=== PATIENT | female | born 1990 | race Caucasian/White ===

== ENCOUNTER 2017-02-18 08:57 | Emergency (ER) | payer BC ==
[2017-02-18 09:11] VITALS: BMI 27.4
[2017-02-18 09:20] VITALS: O2SAT 99
--- NOTE | 2017-02-18 10:29 | C.PDOC ---
History Of Present Illness <Annita Lopez - Last Filed: 02/18/17 11:06> <Kumar Tapia - Last Filed: 02/18/17 13:05> 26 year old female with no significant past medical history presents with complaints of productive cough and congestion which began a week ago. Patient states that she took Sudafed, Delsym and Claritin without relief. She admits to congestion, initial subjective fevers and generalized aches. She denies sore throat, dyspnea, rhinorrhea, recent sick contacts or headaches at this time ( Kumar Tapia) <Annita Lopez - Last Filed: 02/18/17 11:06> History Per: Patient Onset/Duration Of Symptoms: Days Location Of Pain: Headache Associated Symptoms: Fever, Cough, Sputum, Nasal Congestion. denies: Neck Pain Ear Symptoms: Left: None, Right: None Severity: Mild <Kumar Tapia - Last Filed: 02/18/17 13:05> Time Seen by Provider: 02/18/17 10:18 Chief Complaint (Nursing): Cough, Cold, Congestion Past Medical History Family History: States: Unknown Family Hx - Social History Hx Tobacco Use: No Hx Alcohol Use: No Hx Substance Use: No - Immunization History Hx Tetanus Toxoid Vaccination: Yes Hx Influenza Vaccination: No Hx Pneumococcal Vaccination: No <LillygaelKumar - Last Filed: 02/18/17 13:05> Vital Signs: Last Vital Signs Temp 97.8 F 02/18/17 11:14 Pulse 78 02/18/17 11:14 Resp 18 02/18/17 11:14 BP 115/79 02/18/17 11:14 Pulse Ox 99 02/18/17 11:14 Review Of Systems ENT: Positive for: Nose Congestion Respiratory: Positive for: Cough. Negative for: Shortness of Breath, SOB with Excertion, Wheezing Gastrointestinal: Negative for: Nausea, Vomiting, Abdominal Pain <Kumar Tapia - Last Filed: 02/18/17 13:05> Physical Exam - Physical Exam Appears: No Acute Distress Skin: Warm, Dry, No Diaphoretic Head: Atraumatic, Normacephalic Eye(s): bilateral: Normal Inspection Ear(s): Left: Normal, Right: Normal Nose: No Discharge, No Tenderness, Other (mild swelling of nasal turbinates) Oral Mucosa: Moist, No Dry Tongue: Normal Appearing Lips: Normal Appearing Teeth: Normal Dentition Throat: Normal (tonsillar crypts), No Erythema, No Exudate Neck: Normal ROM Lymphatic: Adenopathy Chest: Symmetrical Cardiovascular: Rhythm Regular, No Murmur Respiratory: Normal Breath Sounds Extremity: Normal ROM Neurological/Psych: Oriented x3, Normal Speech, Normal Cognition, Normal Motor, Normal Sensation <Kumar Tapia - Last Filed: 02/18/17 13:05> ED Course And Treatment O2 Sat by Pulse Oximetry: 99 Progress Note: Patient re-evaluated. Given tessalon perles and motrin. Reevaluation Time: 11:10 Reassessment Condition: Improved <Kumar Tapia - Last Filed: 02/18/17 13:05> Supervising Attending Note - Attestation: I have personally seen and examined this patient.: Yes I have fully participated in the care of the patient.: Yes I have reviewed all pertinent clinical information, including history, physical exam and plan: Yes <Annita Lopez - Last Filed: 02/18/17 11:06> <Kumar Tapia - Last Filed: 02/18/17 13:05> - Notes: Notes:: COUGH X 1 WEEK. SUBJ FEVER. NEW ONSET LARYNGITIS X 5 DAYS. NO ASTHMA. NO RELIEF W OTC COUGH RX. EXAM ABOVE (Annita Lopez) Medical Decision Making <Annita Lopez - Last Filed: 02/18/17 11:06> <Kumar Tapia - Last Filed: 02/18/17 13:05> Medical Decision Making: Patient instructed to take supportive measures at this time . No antibiotics to be described as patient has a viral-related presentation. If symptoms return or exacerbate, patient is to go to the Emergency room. Patient expressed understanding. (Kumar Tapia) Disposition Counseled Patient/Family Regarding: Diagnosis, Need For Followup, Rx Given - Disposition Disposition Time: 11:11 <Annita Lopez - Last Filed: 02/18/17 11:06> <Kumar Tapia - Last Filed: 02/18/17 13:05> - Disposition Referrals: [facility] [Outside] [facility] [Outside] Disposition: HOME/ ROUTINE Condition: IMPROVED Prescriptions: Benzonatate [Tessalon Perles] 200 mg PO TID PRN #15 sgl PRN Reason: Cough Ibuprofen [Motrin] 600 mg PO Q6 #30 tab Instructions: Laryngitis (ED), Upper Respiratory Infection (ED) Forms: [employer] (Armenian) - Clinical Impression Clinical Impression: Upper respiratory infection, Laryngitis
[2017-02-18 11:15] VITALS: BP 115/79; PULSE 78; RESP 18; TEMP 97.8
== END 2017-02-18 11:21 | disposition home or self-care (01) ==
LOC: C.ER 08:57
DX: J04.0 Acute laryngitis (principal); J06.9 Acute upper respiratory infection, unspecified

== ENCOUNTER 2017-03-11 16:37 | Emergency (ER) | payer SELFPAY ==
[2017-03-11 16:38] VITALS: BMI 27.4
--- NOTE | 2017-03-11 17:39 | C.PDOC ---
History Of Present Illness 26 y/o female presents to the ER complaining of coughing, congestion, and sore throat. Patient reports that she recently visited [facility] for coughing and congestion and she was given Benzonatate. Patient reports that she took Benzonatate three days ago and she had an allergic reaction to Benzonatate. Patient also reports she has a headache. She denies having any other medical problems. Time Seen by Provider: 03/11/17 17:21 Chief Complaint (Nursing): Cough, Cold, Congestion History Per: Patient History/Exam Limitations: no limitations Onset/Duration Of Symptoms: Days Current Symptoms Are (Timing): Still Present Associated Symptoms: Sore Throat, Cough, Nasal Congestion Severity: Moderate Past Medical History Reviewed: Historical Data, Nursing Documentation, Vital Signs Vital Signs: Last Vital Signs Temp 95.5 F L 03/11/17 16:44 Pulse 86 03/11/17 16:44 Resp 16 03/11/17 16:44 BP 112/74 03/11/17 16:44 Pulse Ox 100 03/11/17 17:49 - Medical History PMH: No Chronic Diseases Surgical History: No Surg Hx Family History: States: No Known Family Hx - Social History Hx Tobacco Use: No Hx Alcohol Use: No Hx Substance Use: No - Immunization History Hx Tetanus Toxoid Vaccination: Yes Hx Influenza Vaccination: No Hx Pneumococcal Vaccination: No Review Of Systems Except As Marked, All Systems Reviewed And Found Negative. Constitutional: Negative for: Fever, Chills ENT: Positive for: Nose Congestion Respiratory: Positive for: Cough Gastrointestinal: Negative for: Nausea, Vomiting, Diarrhea Neurological: Positive for: Headache Physical Exam - Physical Exam Appears: Non-toxic, No Acute Distress Skin: Normal Color, Warm Head: Atraumatic, Normacephalic Eye(s): bilateral: Normal Inspection, PERRL Nose: Normal Oral Mucosa: Moist Throat: Normal, No Erythema, No Exudate Neck: Supple Chest: Symmetrical Extremity: Normal ROM Neurological/Psych: Oriented x3, Normal Speech, Normal Cognition, Normal Motor, Normal Sensation ED Course And Treatment O2 Sat by Pulse Oximetry: 100 (RA) Pulse Ox Interpretation: Normal Medical Decision Making Medical Decision Making: Impression: Cough and Congestion Plan: --Albuterol --Nebulizer Treatment Disposition Counseled Patient/Family Regarding: Diagnosis, Need For Followup, Rx Given - Disposition Referrals: [facility] [Outside] Disposition: HOME/ ROUTINE Disposition Time: 18:48 Condition: STABLE Prescriptions: Albuterol HFA [Ventolin HFA 90 mcg/actuation (8 g)] 1 puff IH QID PRN #1 puff PRN Reason: Cough Prednisone [Deltasone] 60 mg PO DAILY #15 tablet Instructions: Acute Bronchitis (ED) Forms: [employer] (Serbian), Work Excuse - POA Present On Arrival: None - Clinical Impression Clinical Impression: Bronchitis - Scribe Statement The provider has reviewed the documentation as recorded by the Paulo Ang Provider Attestation: All medical record entries made by the Paulo were at my direction and personally dictated by me. I have reviewed the chart and agree that the record accurately reflects my personal performance of the history, physical exam, medical decision making, and the department course for this patient. I have also personally directed, reviewed, and agree with the discharge instructions and disposition.
[2017-03-11] MEDS: Albuterol 0.083% Inhal Sol (2.5 mg/3 mL) UD INH SCH (17:51)
[2017-03-11] MEDS ORDERED: Albuterol 0.083% Inhal Sol (2.5 mg/3 mL) UD ONE (18:11)
[2017-03-11 18:57] VITALS: BP 121/79; PULSE 85; RESP 20; TEMP 98.7; O2SAT 95
== END 2017-03-11 18:57 | disposition home or self-care (01) ==
LOC: C.ER 16:37
DX: J40 Bronchitis, not specified as acute or chronic (principal)

== ENCOUNTER 2017-03-19 19:38 | Emergency (ER) | payer SELFPAY ==
[2017-03-19 19:38] VITALS: BMI 27.4
[2017-03-19 20:12] VITALS: BP 129/86; PULSE 99; RESP 18; TEMP 98.9; O2SAT 96
--- NOTE | 2017-03-19 20:24 | C.PDOC ---
History Of Present Illness 26 year old female with no significant past medical history presents with complaints of productive cough, congestion which began 2 weeks ago. Patient states developed sore throat, pos-nasal drip, productive cough with greenish sputum that would not improved after was seen here in Ed twice and completed Rx : Tessalon, Prednisone. Pt denies previous hx of allergic reaction, denies exposure to new substance. Pt denies high fever, chills, headache, dizziness, drooling, dysphagia, dyspnea, SOB, wheezing, abd. pain, N/V, back pain, UTI sx. Ambulate to ED for evaluation, not in any apparent distress. Time Seen by Provider: 03/19/17 20:12 Chief Complaint (Nursing): Cough, Cold, Congestion History Per: Patient Past Medical History Reviewed: Historical Data, Nursing Documentation, Vital Signs Vital Signs: Last Vital Signs Temp 98.9 F 03/19/17 20:11 Pulse 99 H 03/19/17 20:11 Resp 18 03/19/17 20:11 BP 129/86 03/19/17 20:11 Pulse Ox 96 03/19/17 21:01 - Medical History PMH: No Chronic Diseases Family History: States: No Known Family Hx - Social History Hx Tobacco Use: No Hx Alcohol Use: Yes Hx Substance Use: No - Immunization History Hx Tetanus Toxoid Vaccination: Yes Hx Influenza Vaccination: No Hx Pneumococcal Vaccination: No Review Of Systems Except As Marked, All Systems Reviewed And Found Negative. Constitutional: Negative for: Fever, Chills ENT: Positive for: Nose Discharge, Nose Congestion, Throat Pain, Throat Swelling. Negative for: Ear Discharge Cardiovascular: Negative for: Chest Pain, Palpitations, Light Headedness Respiratory: Positive for: Cough, Sputum. Negative for: Shortness of Breath, Wheezing Gastrointestinal: Negative for: Nausea, Vomiting, Abdominal Pain Genitourinary: Negative for: Dysuria Skin: Negative for: Rash Neurological: Negative for: Altered Mental Status, Headache, Dizziness Physical Exam - Physical Exam Appears: Well, Non-toxic, No Acute Distress Skin: Normal Color, Warm, Dry, No Rash Eye(s): bilateral: PERRL Ear(s): Bilateral: Normal Nose: No Flaring, Discharge (B/L nasal congestion with scant clear rhinorrhea), No Deformity, No Tenderness Oral Mucosa: Moist, No Drooling Lips: Normal Appearing Gingiva: Normal Appearing Throat: Erythema (mild B/L), No Exudate, No Drooling Neck: Trachea Midline, Supple, Other ((-) meningeal sign) Cardiovascular: Rhythm Regular, No Murmur, No JVD Respiratory: No Decreased Breath Sounds, No Accessory Muscle Use, No Stridor, No Wheezing Gastrointestinal/Abdominal: Soft, No Tenderness Back: No CVA Tenderness Extremity: Normal ROM, No Deformity, No Swelling Neurological/Psych: Oriented x3, Normal Speech ED Course And Treatment O2 Sat by Pulse Oximetry: 96 Pulse Ox Interpretation: Normal Progress Note: On re-evaluation, pt is afebrile, hemodynamicaly stable. Non- toxic. Tolerate PO well in ED. Pulseox 96% RA. ENT: mild pharyngitis, (+) post -nasal drip noted. Neck: SUpple, (-) meningeal sign. Lungs: CTA B/L, BS equal B/L. ABd: benign. Neuorlogicaly intact. Influenza (-). RST (-). CXR review and appears noraml. Pt has clinical findings c/w bronchitis, advised. ref. to F/u with PMD in 2-3 days for re-eavl. return to ED if any worsening or new changes. Disposition Counseled Patient/Family Regarding: Studies Performed, Diagnosis, Need For Followup, Rx Given - Disposition Referrals: Dionisio LEYVA,Trev Dotson MD [Medical Doctor] - Disposition: HOME/ ROUTINE Disposition Time: 20:23 Condition: STABLE Additional Instructions: ENCOURAGE FLUIDS TAKE MEDICATION PRESCRIBED FOLLOW UP WITH PMD IN 2-3 DAYS FOR RE-EVALUATION. RETURN TO ED IF ANY WORSENING OR NEW CHANGES. Prescriptions: Cefdinir [Omnicef] 300 mg PO BID #14 cap Loratadine/Pseudoephedrine [Claritin-D 24 Hour Tablet] 1 each PO DAILY #20 tab.er.24h Promethazine HCl/Codeine [Prometh-Codein 6.25-10 mg/5 ml] 10 ml PO Q8 #80 ml Instructions: Acute Bronchitis (ED) Forms: [employer] (Turkmen) - Clinical Impression Clinical Impression: Bronchitis
[2017-03-19] MEDS ORDERED: Promethazine/Cod 6.25mg-10mg/5ml Syr UD PO STA (20:32)
[2017-03-19] MEDS ORDERED: Albuterol 0.083% Inhal Sol (2.5 mg/3 mL) UD IH STA (20:32)
[2017-03-19] MEDS ORDERED: Albuterol 0.083% Inhal Sol (2.5 mg/3 mL) UD ONE (20:49)
[2017-03-19 21:00] LABS: INFLUENZA A B NEGATIVE FOR FLU A/B (NEGATIVE)
[2017-03-19] MEDS ORDERED: Promethazine/Cod 6.25mg-10mg/5ml Syr UD ONE (21:11)
--- NOTE | 2017-03-20 09:10 | RAD ---
Chest x-ray two views History: Cough. Comparison: None available. Findings: No focal infiltrate or effusion. Heart size within normal limits. Impression: No focal infiltrate or effusion.
== END 2017-03-19 21:44 | disposition home or self-care (01) ==
LOC: C.ER 19:38
DX: J40 Bronchitis, not specified as acute or chronic (principal)